=== PATIENT | male | born 1985 | race African-American/Black ===

== ENCOUNTER 2021-05-05 01:19 | Emergency (ER) | payer OTHER, SELFPAY ==
--- NOTE | ~2021-05-05 | XR_ITS ---
EXAMINATION: XR chest 1V EXAM DATE: 05/05/2021 01:53 INDICATION: cough TECHNIQUE: Portable AP frontal chest x-ray was obtained. There is no prior study for comparison. FINDINGS: The lungs are clear. There are no pleural effusions. The cardiomediastinal silhouette is within normal limits. There is no pneumothorax suspected. The bones and soft tissues are unremarkab le. IMPRESSION: No acute cardiopulmonary findings. Reviewed, dictated and finalized at location A. NSED PRACTICAL NURSE
[2021-05-05 01:24] VITALS: BP 135/73; PULSE 70; RESP 18; TEMP 36.6; O2SAT 99
--- NOTE | 2021-05-05 01:45 | ED.URI ---
HPI - URI/Sore Throat General Chief Complaint: Upper Respiratory Infection Stated Complaint: URI Time Seen by Provider: 05/05/21 01:26 Source: patient Mode of arrival: ambulatory Limitations: no limitations History of Present Illness HPI Narrative: 36 year old male presents today with complaints of cough, congestion, sinus drainage, and hot flashes that started 3 days ago. Cough noted to be worse today. Paitent denies fevers, chills, sore throat, or sick contacts. Patient tried using an inhaler tonite with no relief of the chest congestion he was having. Related Data Home Medications Medication Instructions Recorded Confirmed No Home Medications 05/05/21 05/05/21 Allergies Allergy/AdvReac Type Severity Reaction Status Date / Time No Known Allergies Allergy Verified 05/05/21 01:31 Review of Systems Review of Systems: CONSTITUTIONAL: Denies fever, chills, or sweats. EYES: Denies visual changes, redness, or discharge. ENT: Denies rhinorrhea, sore throat, or otalgia. Positive for congestion and sinus drainage. CARDIOVASCULAR: Denies chest pain, palpitations, or edema. RESPIRATORY: Positive for cough and congestion. GASTROINTESTINAL: Denies abdominal pain, nausea, vomiting, or diarrhea. GENITOURINARY: Denies dysuria or hematuria. SKIN: Denies rash or itching. MUSCULOSKELETAL: Denies back pain, joint pain, or myalgia. NEUROLOGIC: Denies headache, numbness, dizziness, or weakness. PSYCHIATRIC: Denies anxiety or depression. Exam Narrative: GENERAL: Well-appearing, well-nourished, and in no acute distress. HEAD: Normocephalic, atraumatic. EYES: PERRLA and EOMI. ENT: Nares clear, no rhinorrhea or epistaxis. Mucous membranes moist. Oropharynx without tonsillar hypertrophy exudate or other lesions. Bilateral TMs pearly sandra nonbulging NECK: Supple. No adenopathy or masses. No carotid bruits or JVD CHEST: Clear to auscultation with being diminished at bases. No respiratory distress. No wheezes rales or rhonchi HEART: Regular rate and rhythm. No murmur heard. Normal peripheral pulses. ABDOMEN: Soft, nontender, nondistended, normal active bowel sounds. EXTREMITIES: Normal range of motion. No edema. SKIN: Warm, dry, no rash. NEURO: No focal deficits. Alert and oriented x3. PSYCH: Normal mood and affect. Course Course Emergency Course: Xray reviewed by Dr. Morel. No acute findings. Paitent to be discharged home with Tessalon ludivina and Flonase. Vital Signs Vital signs: Vital Signs Temperature 36.6 C 05/05/21 01:24 Pulse Rate 70 05/05/21 01:24 Respiratory Rate 18 05/05/21 01:24 Blood Pressure 135/73 05/05/21 01:24 Pulse Oximetry 99 05/05/21 01:24 Temperature 36.6 C 05/05/21 01:24 Pulse Rate 70 05/05/21 01:24 Respiratory Rate 18 05/05/21 01:24 Blood Pressure 135/73 05/05/21 01:24 Pulse Oximetry 99 05/05/21 01:24 MDM - URI/Sore Throat MDM Narrative Medical decision making narrative: Patient lung diminished at bases bilaterally. No rales or rhonchi noted. Xray with no acute findings. Differential Diagnosis Differential diagnosis: Likely upper respiratory infection, sinusitis, viral infection, bronchitis and other (covid) Medical Records Attestation: I reviewed the patient's medical records. Lab Data Labs: Lab Results 05/05/21 Range/Units 01:55 SARS-CoV-2 RNA (RT-PCR) Pending Imaging Data Attestation: I personally reviewed and interpreted this imaging study as follows: (Dr. Morel: No acute findings) Discharge Plan Discharge Clinical Impression: Upper respiratory infection Qualifiers: URI type: unspecified URI Qualified Code(s): J06.9 - Acute upper respiratory infection, unspecified Patient Disposition: Home, Self-Care Condition: Stable Instructions: Antibiotic Form, Viral Syndrome (ED), Cold Symptoms (ED), COVID-19 (Coronavirus Disease 2019) (ED) Additional Instructions: Use flonase and tessalon ludivina as prescribed. Make sure to push fluids
[2021-05-05] MEDS: BENZONATATE 100 MG CAPSULE PO (01:52)
[2021-05-05 17:38] LABS: SARS-CoV-2 RNA PCR Negative
== END 2021-05-05 02:13 | disposition home or self-care (01) ==
PROVIDERS: Emergency Provider Nurse Practitioner Family
DX: J06.9 Acute upper respiratory infection, unspecified (principal); Z20.822 Contact with and (suspected) exposure to COVID-19
CPT/HCPCS: 71045; 99283; A9270; C9803; U0003; U0005

== ENCOUNTER 2022-12-15 09:44 | Emergency (ER) | payer SELFPAY ==
[2022-12-15 09:47] VITALS: BP 142/82; PULSE 69; RESP 17; TEMP 36.6; O2SAT 100
--- NOTE | 2022-12-15 10:01 | PC.NURSE ---
pt seen walking out of dept at this time
== END 2022-12-15 10:01 | disposition left against medical advice (07) ==
LOC: ANHED 10:09
DX: M25.562 Pain in left knee (principal)
CPT/HCPCS: 99199